=== PATIENT | male | born 2000 | race Caucasian/White ===

== ENCOUNTER 2019-08-12 13:55 | Emergency (ER) | payer BC, SELFPAY ==
[2019-08-12 13:58] VITALS: BP 143/83; PULSE 79; RESP 14; TEMP 36.5; O2SAT 98; BMI 26.4
--- NOTE | 2019-08-12 14:08 | DI.RAD.S_ITS ---
PROCEDURE: XR CHEST 1V INDICATIONS: chest pain TECHNIQUE: One view of the chest was acquired. COMPARISON: None. FINDINGS: Surgical changes and devices: None. Lungs and pleura: There is a minimal degree of interstitial type infiltrate involving the right lower lung. The lungs otherwise appear clear. No pneumothorax or pleural effusions are seen. Mediastinum: Mediastinal contours appear normal. Heart size is normal. Bones and chest wall: No suspicious bony lesions. Overlying soft tissues appear unremarkable. IMPRESSION: A mild interstitial type infiltrate is seen involving the right lower lung. As clinically appropriate, a short-term followup chest series (with PA and lateral views) performed in deep inspiration is suggested for further evaluation. Dictated by: Ty Soliz M.D. on 08/12/2019 at 13:24 Approved by: Ty Soliz M.D. on 08/12/2019 at 13:25
--- NOTE | 2019-08-12 14:17 | ED_ITS ---
HPI - Chest Pain <NIKOLAY Weber - Last Filed: 08/12/19 18:23> General Chief Complaint: Chest Pain Stated Complaint: Chest pain, radiating around upper chest Time Seen by Provider: 08/12/19 14:07 Source: patient Mode of arrival: Ambulatory Limitations: no limitations History of Present Illness HPI narrative: 19yo male with a history of anxiety, presents to the emergency department complaining substernal chest pain and pressure for the past few hours. Patient states he started taking sertraline in March, he noticed after taking this that his stomach would feel ?tight ?occasionally, the symptoms would resolve after eating some food. However, today he took his sertraline, ate breakfast, and noticed a pain that felt like ?gas outside my stomach ?, epigastric pressure and dull aching substernal chest pain that radiated to his right upper quadrant and around to his back. He denies any aggravating or alleviating symptoms. He states he waited a few hours and thought it would go way, but he was lying on the bathroom floor in the position drinking water and was nervous that the pain did not resolve. He denies any other symptoms such as fevers, chills, nausea, vomiting, diarrhea, cough, shortness of breath, or any other concerns. Patient denies taking any other medication, denies allergies, and denies any other significant medical history. Related Data Allergies Allergy/AdvReac Type Severity Reaction Status Date / Time No Known Drug Allergies Allergy Verified 08/12/19 14:04 Review of Systems <NIKOLAY Weber - Last Filed: 08/12/19 18:23> Review of Systems Narrative: REVIEW OF SYSTEMS: GENERAL: Denies fevers. HENT: No head trauma or hearing loss. EYES: No loss of vision, double vision, eye pain, irritation or discharge. CARDIOVASCULAR: Reports epigastric/substernal chest pain, see HPI. RESPIRATORY: No shortness of breath. GASTROINTESTINAL: No nausea, vomiting, diarrhea, or constipation. MUSCULOSKELETAL: No weakness or injury. INTEGUMENTARY: No rash, lesions, or pruritus. NEURO: No memory loss, or confusion. Patient History <NIKOLAY Weber - Last Filed: 08/12/19 18:23> Medical History No significant medical problems (Acute) Social History Smoking Status: Unknown if ever smoked Smoking Status: Unknown if ever smoked alcohol intake frequency: holidays/special occasions only Substance Use Type: does not use Exam <NIKOLAY Weber - Last Filed: 08/12/19 18:23> Initial Vital Signs Initial Vital Signs: Vital Signs Temperature 97.7 F 08/12/19 13:58 Pulse Rate 79 08/12/19 13:58 Respiratory Rate 14 08/12/19 13:58 Blood Pressure 143/83 H 08/12/19 13:58 Pulse Oximetry 98 08/12/19 13:58 PHYSICAL EXAMINATION: GENERAL: Well groomed, alert, and cooperative. Answers questions promptly and appropriately. Vital signs noted. HENT: Normocephalic, atraumatic. Hearing intact. Oral mucosa is pink and moist. EYES: Conjunctiva pink, sclera white, no periorbital swelling. CARDIOVASCULAR: S1 and S2 sounds normal. Regular rate and rhythm, no murmurs, clicks, or bruits. No pedal edema. Chest pain was not reproducible with palpation of sternum. RESPIRATORY: Normal respiratory rate, trachea midline, airway patent. No stridor, nasal flaring or accessory muscle use. Lungs are clear in all jacobsen without wheeze, rhonchi, or crackles. GASTROINTESTINAL: Bowel sounds normoactive. Abdomen is soft, tenderness to right upper quadrant, slight tenderness to epigastric tenderness. Negative Barbosa sign. No organomegaly, no palpable masses. GENITALURINARY: No flank tenderness. MUSCULOSKELETAL: Normal gait and coordination. Equal tone and mass bilaterally. EXTREMITIES: CMS intact, no pedal edema. SKIN: Warm, dry, soft, appropriate color for ethnicity. No lesions, rashes, or wounds to visualized areas. NEURO: Alert and Oriented X 3. Good coordination. No ataxia, or sensory deficits, or cognitive issues. PSYCH: Appropriate affect and mood. <Lani Jordan MD - Last Filed: 08/18/19 07:04> Initial Vital Signs Initial Vital Signs: Vital Signs Temperature 97.7 F 08/12/19 13:58 Pulse Rate 79 08/12/19 13:58 Respiratory Rate 14 08/12/19 13:58 Blood Pressure 143/83 H 08/12/19 13:58 Pulse Oximetry 98 08/12/19 13:58 Course <NIKOLAY Weber - Last Filed: 08/12/19 18:23> Course Course Narrative: Patient reported decreased symptoms after administration of GI cocktail. Orders Ordered: Discontinued Medications Al Hydrox/Mg Hydrox/Simethicone 20 ml/ Lidocaine HCl 15 ml 0 ml PO NOW ONE Stop: 08/12/19 15:38 Last Admin: 08/12/19 15:59 Dose: 35 ml Documented by: BASSEM Consultations Consultation #1: Patient staffed with Dr. Jordan. Vital Signs Vital signs: Vital Signs - 8 hr 08/12/19 13:58 08/12/19 14:27 08/12/19 16:03 Temperature 97.7 F Pulse Rate 79 70 100 H Respiratory Rate 14 16 26 H Blood Pressure 143/83 H Blood Pressure [Right Arm] 143/83 H 135/65 Pulse Oximetry 98 99 98 08/12/19 16:11 Temperature Pulse Rate 100 H Respiratory Rate 100 H Blood Pressure 135/65 Blood Pressure [Right Arm] Pulse Oximetry 98 <Lani Jordan MD - Last Filed: 08/18/19 07:04> Orders Ordered: Discontinued Medications Al Hydrox/Mg Hydrox/Simethicone 20 ml/ Lidocaine HCl 15 ml 0 ml PO NOW ONE Stop: 08/12/19 15:38 Last Admin: 08/12/19 15:59 Dose: 35 ml Documented by: BASSEM Vital Signs Vital signs: Vital Signs - 8 hr 08/12/19 13:58 08/12/19 14:27 08/12/19 16:03 Temperature 97.7 F Pulse Rate 79 70 100 H Respiratory Rate 14 16 26 H Blood Pressure 143/83 H Blood Pressure [Right Arm] 143/83 H 135/65 Pulse Oximetry 98 99 98 08/12/19 16:11 Temperature Pulse Rate 100 H Respiratory Rate 100 H Blood Pressure 135/65 Blood Pressure [Right Arm] Pulse Oximetry 98 MDM - Chest Pain <NIKOLAY Webre - Last Filed: 08/12/19 18:23> Medical Records Data Attestation: I reviewed the patient's medical records. Lab Data Attestation: I reviewed the patient's lab results. Result diagrams: 08/12/19 14:25 08/12/19 14:25 Labs: Lab Results 08/12/19 08/12/19 08/12/19 Range/Units 14:25 14:25 14:25 WBC 7.8 (4.5-11.0) X10^3/uL RBC 5.72 (4.5-5.9) X10^6/uL Hgb 17.1 (13.5-17.5) g/dL Hct 50.3 (41-53) % MCV 87.9 (80-100) fL MCH 29.9 (26-34) PG MCHC 34.1 (30-36) % RDW 13.0 (11.6-14.8) % Plt Count 223 (150-400) X10^3/uL Neut % (Auto) 60.9 (50-75) % Lymph % (Auto) 28.3 (25-40) % Irwin % (Auto) 7.6 (3-14) % Eos % (Auto) 2.8 (2-4) % Baso % (Auto) 0.4 (0-2) % Neut # (Auto) 4800 (7492-3586) /uL Lymph # (Auto) 2200 (4020-8336) /uL Irwin # (Auto) 600 (0-900) /uL Eos # (Auto) 200 (0-450) /uL Baso # (Auto) 0 (0-100) /uL PT 11.2 (10.1-12.7) SECONDS INR 1.0 (0.9-1.3) APTT 32 (26.4-36.2) SECONDS Sodium 139 (137-145) mmol/L Potassium 4.1 (3.4-5.1) mmol/L Chloride 102 (98-107) mmol/L Carbon Dioxide 28 (22-32) mmol/L BUN 20 (9-20) mg/dL Creatinine 1.01 (0.66-1.25) mg/dL Estimated GFR > 60.0 (>60) mL/min BUN/Creatinine Ratio 19.8 (6-22) Glucose 114 H (70-100) mg/dL Calcium 10.3 H (8.4-10.2) mg/dL Total Bilirubin 0.6 (0.2-1.3) mg/dL AST 36 (17-59) IU/L ALT 55 H (<50) IU/L Alkaline Phosphatase 71 (38-126) U/L Total Creatine Kinase 87 (55-170) U/L CK-MB (CK-2) TNP CK-MB (CK-2) Rel Index TNP Troponin I < 0.012 (0.01-0.034) ng/mL Total Protein 8.7 H (6.3-8.2) g/dL Albumin 5.2 H (3.5-5.0) g/dL Globulin 3.5 (1.7-4.1) g/dL Albumin/Globulin Ratio 1.5 (1.0-2.8) Lipase 112 (23-300) U/L Imaging Data Chest x-ray: Radiologist's Impression: [address] [address] XRay Report Signed Patient: Manjinder Lamb TMR#: [id number] : 2000Acct:[id number] Age/Sex: 19 / MDate of Service: 08/12/19 Loc: ED Accession Number: [id number] Procedure: XR chest 1V Ordering Provider: Lani Jordan MD PROCEDURE: XR CHEST 1V INDICATIONS: chest pain TECHNIQUE: One view of the chest was acquired. COMPARISON: None. FINDINGS: Surgical changes and devices: None. Lungs and pleura: There is a minimal degree of interstitial type infiltrate involving the right lower lung. The lungs otherwise appear clear. No pneumothorax or pleural effusions are seen. Mediastinum: Mediastinal contours appear normal. Heart size is normal. Bones and chest wall: No suspicious bony lesions. Overlying soft tissues appear unremarkable. IMPRESSION: A mild interstitial type infiltrate is seen involving the right lowe r lung. As clinically appropriate, a short-term followup chest series (with PA and lateral views) performed in deep inspiration is suggested for further evaluation. Dictated by: Ty Soliz M.D. on 08/12/2019 at 13:24 Approved by: Ty Soliz M.D. on 08/12/2019 at 13:25 US - abdomen: Radiologist's Impression: [address] [address] Ultrasound Report Signed Patient: Manjinder Lamb TMR#: [id number] : 2000Acct:[id number] Age/Sex: 19 / MDate of Service: 08/12/19 Loc: ED Accession Number: [id number] Procedure: US abdomen limited Ordering Provider: Marcy Wellington PROCEDURE: US ABDOMEN LIMITED INDICATIONS: POST PRANDIAL RUQ PAIN TECHNIQUE: Real-time scanning was performed of the abdominal and retroperitoneal organs, with image documentation. COMPARISON: None. FINDINGS: Liver: Liver is normal in size and homogeneous in echotexture. Gallbladder: Gallbladder is unremarkable periportal thickness measures 0.9 mm. No stones. Biliary ducts: Intrahepatic bile ducts are non-dilated. Extrahepatic bile duct caliber measures 4.1 mm. Normal is 6-7 mm or less in diameter, or 10 mm or less post-cholecystectomy. Pancreas: Not well-seen. Miscellaneous: No free abdominal fluid. IMPRESSION: Unremarkable exam. Dictated by: Nancy James M.D. on 08/12/2019 at 14:51 Approved by: Nancy James M.D. on 08/12/2019 at 14:52 ECG Data Interpretation: Normal sinus rhythm, rate 65, NC interval 118, QTC 384. No ST elevation, ST-depression, or T-wave abnormality. No ectopy. EKG also viewed by Dr. Jordan per protocol. MDM Narrative Medical decision making narrative: 19yo health male presents to the ED for epigastric/substernal chest/right upper quadrant pain. Symptoms decreased during emergency department stay, and further decreased after administration of GI cocktail. Differential include SSRI induced gastritis, viral gastritis, or gallbladder etiology. Ultrasound was negative, lipase within normal limits, very slight elevation to ALT (cell gallbladder etiology less likely). Patient was also encouraged to use Pepcid for the next week to help with symptoms. Patient was encouraged to follow up with his primary care provider in the next week for further evaluation. I viewed the X-ray with Dr. Jordan, X-ray reported patch infiltrates to RLL, there were very sutble and do not fit the clinical picture of symptoms. Patient was notified of findings and encouraged to follow- up. Return precautions given for new or worsening symptoms. Patient agreed to plan of care verbalized understanding. <Lani Jordan MD - Last Filed: 08/18/19 07:04> Lab Data Labs: Lab Results 08/12/19 08/12/19 08/12/19 Range/Units 14:25 14:25 14:25 WBC 7.8 (4.5-11.0) X10^3/uL RBC 5.72 (4.5-5.9) X10^6/uL Hgb 17.1 (13.5-17.5) g/dL Hct 50.3 (41-53) % MCV 87.9 (80-100) fL MCH 29.9 (26-34) PG MCHC 34.1 (30-36) % RDW 13.0 (11.6-14.8) % Plt Count 223 (150-400) X10^3/uL Neut % (Auto) 60.9 (50-75) % Lymph % (Auto) 28.3 (25-40) % Irwin % (Auto) 7.6 (3-14) % Eos % (Auto) 2.8 (2-4) % Baso % (Auto) 0.4 (0-2) % Neut # (Auto) 4800 (0570-8679) /uL Lymph # (Auto) 2200 (9877-2960) /uL Irwin # (Auto) 600 (0-900) /uL Eos # (Auto) 200 (0-450) /uL Baso # (Auto) 0 (0-100) /uL PT 11.2 (10.1-12.7) SECONDS INR 1.0 (0.9-1.3) APTT 32 (26.4-36.2) SECONDS Sodium 139 (137-145) mmol/L Potassium 4.1 (3.4-5.1) mmol/L Chloride 102 (98-107) mmol/L Carbon Dioxide 28 (22-32) mmol/L BUN 20 (9-20) mg/dL Creatinine 1.01 (0.66-1.25) mg/dL Estimated GFR > 60.0 (>60) mL/min BUN/Creatinine Ratio 19.8 (6-22) Glucose 114 H (70-100) mg/dL Calcium 10.3 H (8.4-10.2) mg/dL Total Bilirubin 0.6 (0.2-1.3) mg/dL AST 36 (17-59) IU/L ALT 55 H (<50) IU/L Alkaline Phosphatase 71 (38-126) U/L Total Creatine Kinase 87 (55-170) U/L CK-MB (CK-2) TNP CK-MB (CK-2) Rel Index TNP Troponin I < 0.012 (0.01-0.034) ng/mL Total Protein 8.7 H (6.3-8.2) g/dL Albumin 5.2 H (3.5-5.0) g/dL Globulin 3.5 (1.7-4.1) g/dL Albumin/Globulin Ratio 1.5 (1.0-2.8) Lipase 112 (23-300) U/L Discharge Plan Departure Patient Disposition: Home Clinical Impression: Atypical chest pain, Epigastric abdominal pain Gastritis Qualifiers: Gastritis type: unspecified gastritis Chronicity: unspecified Gastritis bleeding: without bleeding Qualified Code(s): K29.70 - Gastritis, unspecified, without bleeding Discharge Date/Time: 08/12/19 16:13 Instructions: DI for Gastritis, DI for Atypical Chest Pain, DI for Epigastric Pain Activity Restrictions/Additional Instructions: Thank you for entrusting me with your care today. As discussed, your EKG, ultrasound, and laboratory work are non-remarkable. Your chest x-ray does show a small patch of infiltrates noted on your RLL, I do not think this is causing any problems at time. However, please note if you develop symptoms such as high fevers, shortness of breath, worsening chest pain, or any other concerns to seek care immediately and relate this finding to a healthcare professional. I s uspect most severe symptoms are caused by gastritis, this may be due to a viral cause or the sertraline that your taking. Please take [id number] Pepcid in the morning daily for the next 5-7 days to help with these symptoms. Follow up with her primary care provider in 1-2 weeks for further evaluation if symptoms continue.
[2019-08-12 14:27] VITALS: BP 143/83; PULSE 70; RESP 16; O2SAT 99
[2019-08-12 14:31] LABS: Add Manual Diff / Slide Review NO; Basophils Absolute Auto 0 /uL (0-100); Basophils Percent Auto 0.4 % (0-2); Eosinophils Absolute Auto 200 /uL (0-450); Eosinophils Percent Auto 2.8 % (2-4); Hematocrit 50.3 % (41-53); Hemoglobin 17.1 g/dL (13.5-17.5); Lymphocytes Absolute Auto 2200 /uL (1100-4500); Lymphocytes Percent Auto 28.3 % (25-40); Mean Corpuscular HGB Conc 34.1 % (30-36); Mean Corpuscular Hemoglobin 29.9 PG (26-34); Mean Corpuscular Volume 87.9 fL (80-100); Monocytes Absolute Auto 600 /uL (0-900); Monocytes Percent Auto 7.6 % (3-14); Neutrophils Absolute Auto 4800 /uL (1500-7000); Neutrophils Percent Auto 60.9 % (50-75); Platelet Count 223 X10^3/uL (150-400); Red Blood Cell Count 5.72 X10^6/uL (4.5-5.9); White Blood Cell Count 7.8 X10^3/uL (4.5-11.0)
[2019-08-12 14:38] LABS: Prothrombin Time 11.2 SECONDS (10.1-12.7)
[2019-08-12 14:40] LABS: PTT Partial Thromboplastin Tim 32 SECONDS (26.4-36.2)
[2019-08-12 14:42] LABS: Alanine Aminotransferase 55 IU/L (<50); Albumin 5.2 g/dL (3.5-5.0); Albumin Globulin Ratio 1.5 (1.0-2.8); Alkaline Phosphatase 71 U/L (38-126); Aspartate Aminotransferase 36 IU/L (17-59); BUN Creatinine Ratio 19.8 (6-22); Bilirubin Total 0.6 mg/dL (0.2-1.3); Blood Urea Nitrogen 20 mg/dL (9-20); Calcium 10.3 mg/dL (8.4-10.2); Carbon Dioxide 28 mmol/L (22-32); Chloride 102 mmol/L (98-107); Creatine Kinase 87 U/L (55-170); Estimated Glomerular Filt Rate > 60.0 mL/min (>60); Globulin 3.5 g/dL (1.7-4.1); Glucose 114 mg/dL (70-100); HEMOLYSIS < 15 (0-50); Lipase 112 U/L (23-300); Potassium 4.1 mmol/L (3.4-5.1); Sodium 139 mmol/L (137-145); Total Protein 8.7 g/dL (6.3-8.2)
[2019-08-12 14:53] LABS: Troponin I < 0.012 ng/mL (0.01-0.034)
[2019-08-12] MEDS: MAG HYDROX/ALUMINUM/SIMETH SUS 20 ML, LIDOCAINE VISCOUS 2% 15 ML PO (15:59)
[2019-08-12 16:03] VITALS: BP 135/65; PULSE 100; RESP 26; O2SAT 98
[2019-08-12 16:11] VITALS: BP 135/65; PULSE 100; RESP 100; O2SAT 98
== END 2019-08-12 16:13 | disposition home or self-care (01) ==
PROVIDERS: Emergency Medicine; Emergency Provider Nurse Practitioner
DX: R07.89 Other chest pain (principal); R10.13 Epigastric pain; K29.70 Gastritis, unspecified, without bleeding
CPT/HCPCS: 36415; 71045; 76705; 80053; 82550; 83690; 84484; 85025; 85610; 85730; 93005; 99284